=== PATIENT | male | born 1990 | race Caucasian/White ===

== ENCOUNTER 2018-09-07 16:34 | Emergency (ER) | payer SELFPAY ==
[2018-09-07 16:45] VITALS: BP 129/83; PULSE 88; TEMP 97.6; BMI 35.5
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
== END 2018-09-07 19:05 | disposition home or self-care (01) ==
LOC: JERFT 16:34
PROC: 2W3QXYZ Immobilization of Right Lower Leg using Other Device (ICD-10-PCS; principal; 2018-09-07)
DX: S89.81XA Other specified injuries of right lower leg, initial encounter (principal); X50.1XXA Overexertion from prolonged static or awkward postures, initial encounter; Y93.I9 Activity, other involving external motion; Y92.89 Other specified places as the place of occurrence of the external cause; Y99.8 Other external cause status
CPT/HCPCS: 73562-TC-RT-FY; 99282-25